=== PATIENT | male | born 1995 | race African-American/Black ===

== ENCOUNTER 2021-02-23 12:46 | Emergency (ER) | payer OTHER, BC ==
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
== END 2021-02-23 14:40 | disposition home or self-care (01) ==
LOC: LL.ED 12:46
DX: S90.01XA Contusion of right ankle, initial encounter (principal); W23.0XXA Caught, crushed, jammed, or pinched between moving objects, initial encounter; Y92.89 Other specified places as the place of occurrence of the external cause; Y99.0 Civilian activity done for income or pay
CPT/HCPCS: 73610-RT; 99283

== ENCOUNTER 2022-06-22 09:18 | Emergency (ER) | payer BC, OTHER ==
[2022-06-22] MEDS ORDERED: Bacitracin Oint 1 GM U/D Packet TOP ONE (10:36)
[2022-06-22] MEDS ORDERED: Ketorolac 10 MG Tab PO ONE (10:43)
== END 2022-06-22 11:12 | disposition home or self-care (01) ==
LOC: LL.ED 09:18
DX: S67.195A Crushing injury of left ring finger, initial encounter (principal); S60.142A Contusion of left ring finger with damage to nail, initial encounter; W23.0XXA Caught, crushed, jammed, or pinched between moving objects, initial encounter; Y92.89 Other specified places as the place of occurrence of the external cause; Y99.0 Civilian activity done for income or pay
CPT/HCPCS: 11740; 73140-F3; 99283; A9270-GY